=== PATIENT | female | born 1960 | race Caucasian/White ===

== ENCOUNTER 2019-11-29 15:56 | Emergency (ER) | payer SELFPAY ==
--- NOTE | 2019-11-29 | CT_ITS ---
EXAMINATION: CTA CHEST, ABDOMEN AND PELVIS WITH CONTRAST CLINICAL INFORMATION: Rule out dissection. COMPARISON: No pertinent prior studies are available for comparison. TECHNIQUE: Multidetector volumetric imaging was performed from the thoracic inlet through the pubic symphysis following administration of 100 mL Omnipaque 350. Sagittal and coronal reformatted images were obtained on the technologist's workstation. DLP: 567 mGy-cm VASCULAR FINDINGS: The thoracic aorta appears normal without evidence of aneurysm or dissection. A three-vessel branching pattern of the aortic arch is seen and the great vessels are widely patent. Although not carried out for evaluation of the pulmonary arteries or pulmonary veins no abnormality is seen. The abdominal aorta appears normal. The iliofemoral vessels appear normal. The celiac SMA and LAEX are all patent. An arcuate-type celiac stenosis is present. There are single renal arteries present bilaterally which are widely patent. NONVASCULAR FINDINGS: CHEST: Lung: A calcified granuloma is present in the left upper lobe (series 10 image 215). A 3 mm nodule is present in the right upper lobe (series 10 image 222). The lungs are otherwise clear without worrisome focal opacity or nodule. Mediastinum: The mediastinum is normal. The central vascular structures are unremarkable. No hilar or mediastinal lymphadenopathy. Pericardium/Pleura: No significant effusion. No pleural mass or thickening. Chest Wall/Axilla: Unremarkable. ABDOMEN/PELVIS: Peritoneal Space: No significant free air or free fluid identified. Liver, Gallbladder, Biliary Tree: The liver is normal in size, shape, and attenuation. No focal hepatic lesion or biliary ductal dilatation is present. The gallbladder is unremarkable with no evidence of radiopaque gallstones, gallbladder wall thickening, or obvious pericholecystic inflammatory changes. Pancreas: Unremarkable. Spleen: Unremarkable. Adrenal Glands: Unremarkable. Kidneys and Ureters: The kidneys are normal in size, shape, and attenuation. No hydronephrosis, hydroureter, or calculi seen. No perinephric stranding. Bladder: Unremarkable. Gastrointestinal Tract: The small and large bowel are unremarkable. The appendix is not seen but there is no evidence of appendicitis. Abdominal Wall: No significant hernia is appreciated. Lymph Nodes: No lymphadenopathy. Vascular: The aorta appears normal. The IVC appears unremarkable. PELVIC VISCERA: Unremarkable. OSSEUS STRUCTURES: Mild degenerative changes are noted in the spine. No bony destructive lesions are seen. IMPRESSION: No evidence of dissection or aneurysm. Other incidental findings as described above.
[2019-11-29 16:03] VITALS: BP 109/68; BP 111/62; PULSE 98; RESP 18; TEMP 37.2; O2SAT 98; BMI 25.6
--- NOTE | 2019-11-29 17:06 | ECG_ITS ---
Test Reason : WEAKNESS Blood Pressure : / mmHG Vent. Rate : 090 BPM Atrial Rate : 090 BPM P-R Int : 132 ms QRS Dur : 076 ms QT Int : 354 ms P-R-T Axes : 064 062 041 degrees QTc Int : 433 ms Normal sinus rhythm Possible Left atrial enlargement Borderline ECG When compared with ECG of 15-FEB-2016 18:24, No significant change was found Referred By: Martin Goode Electronically Signed By:GRETCHEN MACEDO
[2019-11-29 17:11] VITALS: BP 117/67; PULSE 101; RESP 16; TEMP 36.9; O2SAT 98
--- NOTE | 2019-11-29 17:12 | ED.WEAKNESS ---
HPI - Weakness General Chief complaint: Weakness Stated complaint: HYPOTENSION Time Seen by Provider: 11/29/19 17:06 Source: patient and EMS History of Present Illness HPI Narrative: Patient states he has been having right shoulder pain for the past 2 months. Has been taking medications for with her primary care doctor however symptoms have not resolved. Patient states went to the doctor today however did not eat or drink anything and feeling weak. upon arrival to staff they noticed that the patient had a very low blood pressure do a blood sugar was okay. However patient continued to be weak patient felt like she wanted to pass out and was pale as per staff. At this point patient states no diaphoresis no chest pain or shortness of breath. Patient states that time started feeling a bit better. currently patient denies chest pain denies shortness of breath or abdominal pain. No headache. Denies numbness or weakness to extremities x4 MD Complaint: generalized weakness Onset (ago): hour(s) Duration: improved Location: generalized Severity: moderate Related Data Home Medications Medication Instructions Recorded Confirmed atorvastatin 10 mg PO BEDTIME 11/29/19 11/29/19 cyclobenzaprine 10 mg PO TID PRN 11/29/19 11/29/19 levothyroxine 75 mcg PO DAILY 11/29/19 11/29/19 Allergies Allergy/AdvReac Type Severity Reaction Status Date / Time No Known Allergies Allergy Verified 11/29/19 16:19 Review of Systems Review of Systems: Constitutional : No Weight loss, No Fever, No Chills, No Night Sweats, No Fatigue, No Malaise ENT/Mouth : No Hearing loss, No Ear Pain, No Nasal Congestion, No Sinus Pain, No Hoarseness, No sore throat, No Rhinorrhea, No Swallowing Difficulty Eyes: No Eye Pain, No Swelling, No Redness, No Foreign Body, No Discharge, No Vision Changes Cardiovascular : No Chest Pain, No SOB, No Dyspnea on Exertion, No Orthopnea, No Edema, No Palpitations Respiratory : No Cough, No Sputum, No Wheezing, No Smoke Exposure, No Dyspnea Gastrointestinal : No Nausea, No Vomiting, No Diarrhea, No Constipation, No abdominal Pain, No Hematochezia, No Melena Genitourinary : no irregular bleeding, No Dysuria, No Urinary Frequency, No Hematuria, No Urinary Incontinence, No Urgency, No Flank Pain, No Urinary Flow Changes, No Hesitancy Musculoskeletal : No joint pain, No Myalgias, No Joint Swelling Skin : No Skin Lesions, No rash Neuro : No Weakness, No Numbness, No Paresthesias, No Loss of Consciousness, No Dizziness, No Headache Psych : No Anxiety/Panic, No Depression, No SI/HI/AH/VH, No Social Issues, Heme/Lymph: No Bruising, No Bleeding,No Lymphadenopathy Endocrine : No Polyuria, No Polydipsia, No Temperature Intolerance FORMERLY [facility], [facility]–1983 Past Medical History FORMERLY [facility], [facility]–1983 Narrative: patient states no significant family history no dissections noted Medical History Allergic rhinitis Colitis Hypercholesteremia Hypothyroidism Insomnia Social History Social History Smoking Status: Never smoker Smoked in Last 30 Days: No Use of substances other than those prescribed or required for medical reasons: No Advance Directives: No Advance Directives Information Provided: Yes Physical Exam Vital Signs and I&O and Narrative: Vital Signs and I&O: Vital Signs Temp 98.5 F 11/29/19 17:11 Pulse 109 H 11/29/19 17:46 Resp 16 11/29/19 17:11 BP 116/60 11/29/19 17:46 Pulse Ox 98 11/29/19 17:11 Intake & Output 11/29/19 11/29/19 11/30/19 06:59 18:59 06:59 Intake Total 1000 / 1000 Balance 1000 / 1000 Weight 63.503 kg Intake: Intake, IV Amoun t 1000 / 1000 0.9 % Sodium C hloride 1,000 ml 1000 / 1000 @ 999 mls/hr I VCONT .Q1H1M [facility] Rx#:[id number] Body Mass Index 25.6 vital signs noted Const: General: cooperative, healthy appearing, comfortable, no acute distress and well developed Orientation/consciousness: oriented to person HENMT: Head: Yes normal to inspection and Yes No palpable skull fracture present Ears: hearing grossly normal bilaterally Face and sinus: Yes normal facial exam Eyes: Sclerae: sclerae normal Pupils: Equal, round and reactive pupils present Neck: Neck: Yes normal visual inspection Chest: Chest palpation & inspection: normal inspection of the chest Resp: Effort & Inspection: normal respiratory effort, no cough, respiratory effort not decreased, no grunting and not labored Cardio: Jugular venous distension: no JVD Rate: regular rate Bruits: no abdominal aortic bruits Peripheral pulses: Peripheral pulses 2+ throughout GI: Inspection: Yes normal to inspection Palpation (GI): No Abdominal aortic bruit present Percussion: No normal to percussion : General: Yes no CVA tenderness Back/Spine/Pelvis: Back: no CVA tenderness Skin: General skin exam: no rashes or lesions noted Neuro: General: oriented to person Cranial nerves: Yes Equal, round and reactive pupils present Extrem: General: Yes normal to inspection Psych: Appearance: grossly normal Course Reevaluation(s) Reevaluation #1: patient resting in room. Orthostatics negative. Labs negative EKG normal. Normal dissection study. I discussed with the patient reasons to follow-up with the emergency department. At this point patient had a vasovagal near syncope secondary to acute on chronic right shoulder pain will discharge home with instructions return to primary care doctor return here to the ER. Patient agrees is alert oriented x4 Time: 19:51 MDM - Weakness Lab Data Result diagrams: 11/29/19 17:37 11/29/19 17:37 Labs: Lab Results 11/29/19 11/29/19 11/29/19 Range/Units 17:37 17:37 17:37 WBC 9.6 (4.8-10.8) X10*3/uL RBC 4.64 (4.20-5.50) X10*6/uL Hgb 12.7 (12.0-16.0) g/dl Hct 40.1 (37-47) % MCV 86.4 (80-98) fL MCH 27.4 (27.0-33.0) pg MCHC 31.7 (31.0-35.0) g/dl RDW 12.5 (11.0-16.0) % Plt Count 202 (160-400) X10*3/uL MPV 9.3 L (9.4-12.3) fL Immature Gran % (Auto) 0.3 (0.0-0.4) % Neut % (Auto) 88.5 H (45-73) % Lymph % (Auto) 6.2 L (20-40) % [place] % (Auto) 4.6 (2-11) % Eos % (Auto) 0.2 (0-4) % Baso % (Auto) 0.2 (0-2) % Neut # (Auto) 8.5 H (2.0-8.3) X10*3/uL Lymph # (Auto) 0.6 L (1.2-4.9) X10*3/uL [place] # (Auto) 0.4 (0.1-1.2) X10*3/uL Eos # (Auto) 0.0 (0.0-0.4) X10*3/uL Baso # (Auto) 0.0 (0.0-0.2) X10*3/uL Abs Immat Gran (auto) 0.03 (0.00-0.03) X10*3/uL Absolute Nucleated RBC 0.000 (0.0-0.012) X10*3/uL Nucleated RBC % (auto) 0.0 (0.0-0.2) /100WBC Smear Tech's Comments VERIFIED Hold Blue Top SEE NOTE Sodium 138 (135-145) mmol/L Potassium 4.3 (3.3-5.1) mmol/l Chloride 103 (96-108) mmol/L Carbon Dioxide 27 (22-29) mmol/L Anion Gap 12 (12-20) BUN 14 (9-16) mg/dL Creatinine 0.79 (0.5-1.4) mg/dL Estim Creat Clear Calc 68.8 Estimated GFR > 60 Random Glucose 102 (60-115) mg/dL Calcium 9.1 (8.4-10.2) mg/dL Total Bilirubin (0.0-1.0) mg/dL Direct Bilirubin (0.0-0.5) mg/dL AST (5-31) U/L ALT (0-31) U/L Alkaline Phosphatase (39-117) U/L Troponin I High Sens (<3.5-17.0) ng/L Total Protein (6.5-8.0) g/dL Albumin (3.5-5.0) g/dL Lipase (8-78) U/L 11/29/19 11/29/19 Range/Units 17:37 17:37 WBC (4.8-10.8) X10*3/uL RBC (4.20-5.50) X10*6/uL Hgb (12.0-16.0) g/dl Hct (37-47) % MCV (80-98) fL MCH (27.0-33.0) pg MCHC (31.0-35.0) g/dl RDW (11.0-16.0) % Plt Count (160-400) X10*3/uL MPV (9.4-12.3) fL Immature Gran % (Auto) (0.0-0.4) % Neut % (Auto) (45-73) % Lymph % (Auto) (20-40) % [place] % (Auto) (2-11) % Eos % (Auto) (0-4) % Baso % (Auto) (0-2) % Neut # (Auto) (2.0-8.3) X10*3/uL Lymph # (Auto) (1.2-4.9) X10*3/uL [place] # (Auto) (0.1-1.2) X10*3/uL Eos # (Auto) (0.0-0.4) X10*3/uL Baso # (Auto) (0.0-0.2) X10*3/uL Abs Immat Gran (auto) (0.00-0.03) X10*3/uL Absolute Nucleated RBC (0.0-0.012) X10*3/uL Nucleated RBC % (auto) (0.0-0.2) /100WBC Smear Tech's Comments Hold Blue Top Sodium (135-145) mmol/L Potassium (3.3-5.1) mmol/l Chloride (96-108) mmol/L Carbon Dioxide (22-29) mmol/L Anion Gap (12-20) BUN (9-16) mg/dL Creatinine (0.5-1.4) mg/dL Estim Creat Clear Calc Estimated GFR Random Glucose (60-115) mg/dL Calcium (8.4-10.2) mg/dL Total Bilirubin 0.8 (0.0-1.0) mg/dL Direct Bilirubin 0.3 (0.0-0.5) mg/dL AST 31 (5-31) U/L ALT 44 H (0-31) U/L Alkaline Phosphatase 93 (39-117) U/L Troponin I High Sens < 3.5 (<3.5-17.0) ng/L Total Protein 7.7 (6.5-8.0) g/dL Albumin 4.4 (3.5-5.0) g/dL Lipase 40 (8-78) U/L ECG Data Attestation: I personally reviewed and interpreted this ECG as follows: Interpretation: EKG 90 beats per minute. Normal sinus rhythm. Normal axis. Normal HI interval. No ST-T changes Discharge Plan Discharge Clinical Impression: Syncope, vasovagal Patient Disposition: Home, Self-Care Instructions: Hypotension (ED), Syncope (ED) Additional Instructions: return to the emergency room if symptoms worsen. follow-up with your primary doctor in 1-2 days Prescriptions: No Action atorvastatin 10 mg Tablet 10 mg PO BEDTIME RF: 0 levothyroxine 75 mcg Tablet 75 mcg PO DAILY RF: 0 cyclobenzaprine 10 mg Tablet 10 mg PO TID PRN (Reason: Muscle Spasm) RF: 0
[2019-11-29 17:38] VITALS: BP 110/68; PULSE 93
[2019-11-29 17:43] VITALS: BP 115/75; PULSE 94
[2019-11-29 17:46] VITALS: BP 116/60; PULSE 109
[2019-11-29] MEDS: 0.9 % Sodium Chloride 1,000 ML 999 ML IVCONT (17:55)
[2019-11-29 17:56] LABS: Basophils Percent Auto 0.2 % (0-2); Eosinophils Percent Auto 0.2 % (0-4); Hematocrit 40.1 % (37-47); Hemoglobin 12.7 g/dl (12.0-16.0); Imm Gran Abs Auto 0.03 X10*3/uL (0.00-0.03); Imm Gran Pct Auto 0.3 % (0.0-0.4); Lymphocytes Absolute Auto 0.6 X10*3/uL (1.2-4.9); Lymphocytes Percent Auto 6.2 % (20-40); MANUAL DIFF FLAG SCAN; Mean Corpuscular HGB Conc 31.7 g/dl (31.0-35.0); Mean Corpuscular Hemoglobin 27.4 pg (27.0-33.0); Mean Corpuscular Volume 86.4 fL (80-98); Mean Platelet Volume 9.3 fL (9.4-12.3); Monocytes Absolute Auto 0.4 X10*3/uL (0.1-1.2); Monocytes Percent Auto 4.6 % (2-11); Neutrophils Absolute Auto 8.5 X10*3/uL (2.0-8.3); Neutrophils Percent Auto 88.5 % (45-73); Platelet Count 202 X10*3/uL (160-400); Red Blood Count 4.64 X10*6/uL (4.20-5.50); Red Cell Distribution Width 12.5 % (11.0-16.0); SCAN SMEAR FLAG 1; White Blood Count 9.6 X10*3/uL (4.8-10.8)
--- NOTE | 2019-11-29 17:59 | PC.NURSE ---
IV placed, orthos done, labs drawn and sent. Awaiting CT scan.
[2019-11-29 18:17] LABS: Anion Gap 12 (12-20); Blood Urea Nitrogen 14 mg/dL (9-16); Calcium 9.1 mg/dL (8.4-10.2); Carbon Dioxide 27 mmol/L (22-29); Chloride 103 mmol/L (96-108); Creatinine Clr Calc Pharmacy 68.8; Estimated Glomerular Filt Rate > 60; Glucose Random 102 mg/dL (60-115); Potassium 4.3 mmol/l (3.3-5.1); Sodium 138 mmol/L (135-145)
[2019-11-29 18:19] LABS: Alanine Aminotransferase 44 U/L (0-31); Albumin Level 4.4 g/dL (3.5-5.0); Alkaline Phosphatase 93 U/L (39-117); Aspartate Amino Transferase 31 U/L (5-31); Bilirubin Direct 0.3 mg/dL (0.0-0.5); Bilirubin Total 0.8 mg/dL (0.0-1.0); Lipase 40 U/L (8-78); Total Protein 7.7 g/dL (6.5-8.0)
[2019-11-29 18:23] LABS: Troponin-I High Sensitivity < 3.5 ng/L (<3.5-17.0)
[2019-11-29 18:25] LABS: SLIDE REVIEW VERIFIED
[2019-11-29] MEDS: iohexoL 350 MG/ML 100 ML INFUS..BTL IV (18:36)
--- NOTE | 2019-11-29 19:09 | PC.NURSE ---
CARE TAKEN OVER FROM KRISTIE TYLER. PATIENT COMING FROM PRIMARY CARE. PATIENT HAD NEAR SYNCOPE EPISODE AND WAS HYPOTENSIVE. PATIENT'S EKG WAS NON DIAGNOSTIC. PATIENT IS AWAITING A CTA OF CHEST/ABDOMEN.
== END 2019-11-29 20:18 | disposition home or self-care (01) ==
PROVIDERS: Emergency Provider Emergency Medicine
DX: R55 Syncope and collapse (principal); M25.511 Pain in right shoulder; R53.1 Weakness; Z79.899 Other long term (current) drug therapy
CPT/HCPCS: 36415; 71275; 72191; 74175; 80048; 80076; 83690; 84484; 85025; 93005; 93010; 96360; 99284

== ENCOUNTER 2019-12-15 18:39 | Emergency (ER) | payer SELFPAY ==
[2019-12-15 18:49] VITALS: BP 141/79; PULSE 81; RESP 18; TEMP 37.6; O2SAT 98
[2019-12-15 19:11] VITALS: BP 130/70; BP 141/76; PULSE 81; PULSE 98; RESP 18; TEMP 37.6; O2SAT 100; O2SAT 98; BMI 56.4
--- NOTE | 2019-12-15 19:42 | XR_ITS ---
EXAMINATION: XR HIP, RIGHT CLINICAL INFORMATION: Reason pain COMPARISON: None TECHNIQUE: Two views of the right hip. FINDINGS: Visualized portion of the proximal right femur demonstrate no fracture. Femoral head is well-seated within the acetabulum. There is only mild narrowing of the right femoral acetabular joint space. The pelvic ring is intact. Sacroiliac joints are symmetric. Vascular calcification of the left hemipelvis. IMPRESSION: No fracture, dislocation or significant degenerative changes of the right hip.
[2019-12-15] MEDS: NaPROXEN 500 MG TABLET PO (20:03)
[2019-12-15] MEDS: Acetaminophen 325 MG TABLET 650 MG PO (20:04)
[2019-12-15] MEDS: Cyclobenzaprine HCl 5 MG TABLET PO (20:04)
[2019-12-15] MEDS: Lidocaine 4 % Patch ADH..PATCH 1 PATCH TRANSDERMA (20:04)
--- NOTE | 2019-12-15 20:25 | ED_ITS ---
HPI - Back Pain/Injury General Chief Complaint: Back Pain/Injury <ANGI Grier - Last Filed: 12/16/19 00:19> Stated Complaint: back pain <ANGI Grier - Last Filed: 12/16/19 00:19> Time Seen by Provider: 12/15/19 19:42 <ANGI Grier - Last Filed: 12/16/19 00:19> Source: patient <ANGI Grier - Last Filed: 12/16/19 00:19> Mode of arrival: ambulatory <ANGI Grier - Last Filed: 12/16/19 00:19> History of Present Illness HPI Narrative: 59-year-old female with a past medical history of insomnia, hypothyroid, hyperlipidemia, colitis presenting to ED complaining of low back/ right hip pain radiating down RLE x a few days. Reports pain worse with movement /ambulation. Denies known injury/ trauma or falls. Denies numbness, tingling, incontinence, retention, fever/chills <ANGI Grier - Last Filed: 12/16/19 00:19> MD elicited complaint: back pain <ANGI Grier Last Filed: 12/16/19 00:19> Related Data Home Medications: Home Medications Medication Instructions Recorded Confirmed atorvastatin 10 mg PO BEDTIME 11/29/19 11/29/19 cyclobenzaprine 10 mg PO TID PRN 11/29/19 11/29/19 levothyroxine 75 mcg PO DAILY 11/29/19 11/29/19 Previous Rx's Medication Instructions Recorded acetaminophen [Tylenol Extra 500 mg PO Q6H PRN #20 tab 12/15/19 Strength] cyclobenzaprine 5 mg PO Q8H PRN 5 Days #14 tab 12/15/19 lidocaine [Lidoderm] 1 patch TOPICAL DAILY PRN #30 ea 12/15/19 MDD remove after 12 hours naproxen 500 mg PO BID PRN 10 Days #20 tab 12/15/19 hydrocodone-acetaminophen [[place]] 1 tab PO Q8H PRN #9 tab 12/16/19 <ANGI Grier Last Filed: 12/16/19 00:19> Allergies/Adverse Reactions: Allergies Allergy/AdvReac Type Severity Reaction Status Date / Time No Known Allergies Allergy Verified 11/29/19 16:19 <ANGI Grier - Last Filed: 12/16/19 00:19> Review of Systems Review of Systems: Constitutional: No Weight loss, No Fever, No Chills Gastrointestinal: No Nausea, No Vomiting, No Diarrhea, No Abdominal pain Genitourinary:, No Dysuria, No Urinary Frequency, No Urinary Incontinence/retention, No Flank Pain Musculoskeletal: + joint pain, No Myalgias, No Joint Swelling Skin: No Skin Lesions, No rash Neuro: No Weakness, No Numbness, No Paresthesias <ANGI Grier - Last Filed: 12/16/19 00:19> Yes all other systems are reviewed and are negative <ANGI Grier - Last Filed: 12/16/19 00:19> [facility] Past Medical History Attestation statement: The following information was validated with the patient. <ANGI Grier - Last Filed: 12/16/19 00:19> Medical History: Medical History Allergic rhinitis Colitis Hypercholesteremia Hypothyroidism Insomnia <ANGI Grier - Last Filed: 12/16/19 00:19> Social History Social History: Social History Smoking Status: Never smoker Use of substances other than those prescribed or required for medical reasons: No Advance Directives: No <ANGI Grier - Last Filed: 12/16/19 00:19> Physical Exam Vital Signs: Vital Signs: Vital Signs Temp Pulse Resp BP Pulse Ox 12/15/19 22:39 97.5 F 70 16 123/67 96 12/15/19 20:46 99.1 F 71 18 114/61 99 12/15/19 19:11 99.6 F 81 18 141/76 H 98 12/15/19 18:49 99.6 F 81 18 141/79 H 98 Body Mass Index 56.4 <ANGI Grier - Last Filed: 12/16/19 00:19> Vital Signs: Vital Signs Temp Pulse Resp BP Pulse Ox 12/15/19 22:39 97.5 F 70 16 123/67 96 12/15/19 20:46 99.1 F 71 18 114/61 99 12/15/19 19:11 99.6 F 81 18 141/76 H 98 12/15/19 18:49 99.6 F 81 18 141/79 H 98 Body Mass Index 56.4 <Maggie Owen MD - Last Filed: 12/16/19 02:16> Const: General: cooperative and healthy appearing <ANGI Grier - Last Filed: 12/16/19 00:19> Orientation/consciousness: patient oriented x3 <ANGI Grier - Last Filed: 12/16/19 00:19> Limitations: no limitations <ANGI Grier - Last Filed: 12/16/19 00:19> HENMT: Head: Yes normal to inspection <ANGI Grier - Last Filed: 12/16/19 00:19> Ears: hearing grossly normal bilaterally <ANGI Grier - Last Filed: 12/16/19 00:19> General nose exam: Normal external nose present <ANGI Grier - Last Filed: 12/16/19 00:19> Face and sinus: Yes normal facial exam <ANGI Grier - Last Filed: 12/16/19 00:19> Eyes: General: appearance normal, both eyes and all related structures <ANGI Grier - Last Filed: 12/16/19 00:19> EOM: EOMs intact bilaterally <ANGI Grier - Last Filed: 12/16/19 00:19> Neck: Other: no midline cervical spinous tenderness <ANGI Grier - Last Filed: 12/16/19 00:19> Neck: Yes normal visual inspection <ANGI Grier - Last Filed: 12/16/19 00:19> Resp: Effort & Inspection: normal respiratory effort <ANGI Grier - Last Filed: 12/16/19 00:19> Back/Spine/Pelvis: Other: no midline thoracic / lumbar tenderness. +R Lower lumbar MSK tenderness. + Right hip tenderness, no deformity, ROM decreased secondary to pain. NV intact distally. <ANGI Grier - Last Filed: 12/16/19 00:19> Skin: Rashes: no rashes <ANGI Grier - Last Filed: 12/16/19 00:19> Wounds: no wounds <ANGI Grier - Last Filed: 12/16/19 00:19> Neuro: Other: No saddle anesthesia <ANGI Grier - Last Filed: 12/16/19 00:19> General: patient oriented x3 <ANGI Grier - Last Filed: 12/16/19 00:19> Extrem: General: Yes normal to inspection <ANGI Grier - Last Filed: 12/16/19 00:19> Course Course Course Narrative: - right hip x-ray without fracture dislocation or significant degenerative changes worrisome signs and symptoms and strict return precautions discussed with patient. She verbalized understanding feel safe for discharge - patient unable to sit/ ambulate due to pain. Additional medications ordered - patient continually refusing to ambulate in the ED. Offered PT/ SNF placement which she refused. Patient reports she would like to go home -0014- patient ambulated in ED you steadily with assistance reports she has follow-up tomorrow with physical therapy. Worrisome signs and symptoms and strict return precautions discussed. Patient's son is in the waiting room to pick her up <ANGI Grier - Last Filed: 12/16/19 00:19> MDM - Back Pain/Injury MDM Narrative Medical decision making narrative: likely MSK pain. Low concern for fracture, cauda equina, or cord compression. No red flag symptoms or midline spinous tenderness. No saddle anesthesia <ANGI Grier - Last Filed: 12/16/19 00:19> Differential Diagnosis Differential diagnosis: Likely lumbar radiculopathy, sciatica and strain of lumbar region <ANGI Lane - Last Filed: 12/16/19 00:19> Discharge Plan Discharge Clinical Impression: Sciatica Qualifiers: Laterality: right Qualified Code(s): M54.31 - Sciatica, right side Strain of lumbar region Qualifiers: Encounter type: initial encounter Qualified Code(s): S39.012A - Strain of muscle, fascia and tendon of lower back, initial encounter Acute hip pain Qualifiers: Laterality: right Qualified Code(s): M25.551 - Pain in right hip <ANGI Grier - Last Filed: 12/16/19 00:19> Patient Disposition: Home, Self-Care <ANGI Grier - Last Filed: 12/16/19 00:19> Instructions: Arthralgia (ED), Back Pain (ED) <ANGI Grier Last Filed: 12/16/19 00:19> Additional Instructions: your x-rays were unremarkable Your pain is likely musculoskeletal Flexeril is a muscle relaxer, take at night as it makes you drowsy, do not drive, drink alcohol, or operate machinery while taking it Naproxen as an anti-inflammatory / pain medication, take with food Lidoderm patches are numbing patches, apply to painful area [place] as an opiate pain medication, take only when pain is severe for the next 3 days In addition take Tylenol at home be aware [place] Tylenol mixed in, do not exceed 4 g in 1 day You need to see her PCP and request physical therapy Apply heat to your back If symptoms persist or worsen, pain becomes unbearable, you developed urinary retention or incontinence, or weakness return to the ED <ANGI Grier Last Filed: 12/16/19 00:19> Prescriptions: New acetaminophen [Tylenol Extra Strength] 500 mg tablet 500 mg PO Q6H PRN (Reason: pain or fever) Qty: 20 RF: 0 lidocaine [Lidoderm] 5 % adhesive patch,medicated 1 patch topical DAILY MDD remove after 12 hours PRN (Reason: pain) Qty: 30 RF: 0 naproxen 500 mg tablet 500 mg PO BID PRN (Reason: pain) 10 Days Qty: 20 RF: 0 cyclobenzaprine 5 mg tablet 5 mg PO Q8H PRN (Reason: pain (scale score 7-10)) 5 Days Qty: 14 RF: 0 hydrocodone-acetaminophen [[place]] 5-325 mg tablet 1 tab PO Q8H PRN (Reason: pain) Qty: 9 RF: 0 No Action atorvastatin 10 mg Tablet 10 mg PO BEDTIME RF: 0 levothyroxine 75 mcg Tablet 75 mcg PO DAILY RF: 0 cyclobenzaprine 10 mg Tablet 10 mg PO TID PRN (Reason: Muscle Spasm) RF: 0 <ANGI Grier Last Filed: 12/16/19 00:19> Referrals: Physician,Unknown [Primary Care Provider] - 2 days ( your primary care doctor) <ANGI Grier Last Filed: 12/16/19 00:19> Interventions: ED Discharge Assessment Last Done: 12/16/19 00:38 <ANGI Grier - Last Filed: 12/16/19 00:19> Discharge Date/Time: 12/16/19 00:40 <ANGI Grier - Last Filed: 12/16/19 00:19>
[2019-12-15 20:46] VITALS: BP 114/61; PULSE 71; RESP 18; TEMP 37.3; O2SAT 99
--- NOTE | 2019-12-15 21:13 | PC.NURSE ---
Addendum entered by Louisa Kim 12/15/19 22:15: PT WAS ABLE TO STAND BUT C/O PAIN. MOVED SLOWLY. Original Note: PT C/O TOO MUCH PAIN. HURTS WHEN SHE MOVES. AGNI MAGUIRE NOTIFIED. OXYCODONE ORDERED. PT STATES SHE HAD A BAD EXPERIENCE WITH OXYCODONE AND DOES NOT WANT TOTAKE IT. DICUSSED OTHER OPTIONS. WILL DISCUSS WITH PROVIDER.
[2019-12-15] MEDS: HYDROcodone Bit/Acetam 5/325 TABLET 1 TAB PO (21:39)
--- NOTE | 2019-12-15 21:46 | PC.NURSE ---
PT GIVEN HAILEY CRACKERS, TEA FROM HOME. PT AGREED TO TAKE VICODIN. MED WITH VICODIN ORDERED. WAITING FOR MED TO WORK.
[2019-12-15 22:39] VITALS: BP 123/67; PULSE 70; RESP 16; TEMP 36.4; O2SAT 96
--- NOTE | 2019-12-16 00:05 | PC.NURSE ---
PATIENT AMBULATED WITH THIS NURSE AND KAYLEN WHITLEY. EDUCATED THAT SHE WILL NEED TO WALK FREQUENTLY AT HOME. HAS PT APPOINTMENT TOMORROW. ENCOURAGED TO MAKE THAT APPOINTMENT THEY WILL BE ABLE TO HELP HER MORE.
== END 2019-12-16 00:40 | disposition home or self-care (01) ==
PROVIDERS: Emergency Provider Emergency Medicine
DX: M54.41 Lumbago with sciatica, right side (principal); S39.012A Strain of muscle, fascia and tendon of lower back, initial encounter; X58.XXXA Exposure to other specified factors, initial encounter; M25.551 Pain in right hip; Y93.9 Activity, unspecified; Y92.9 Unspecified place or not applicable; Y99.9 Unspecified external cause status
CPT/HCPCS: 73502; 99283; 99284